=== PATIENT | female | born 1980 | race Caucasian/White ===

== ENCOUNTER 2021-04-13 14:36 | Emergency (ER) | payer OTHER ==
[~2021-04-13] VITALS: Ht 170.2 cm; Wt 88.5 kg
[2021-04-13] MEDS ORDERED: CYMBALTA30 MG PO (14:47)
[2021-04-13] MEDS ORDERED: ESTRACE1 MG PO (14:49)
[2021-04-13] MEDS ORDERED: MOBIC7.5 MG PO (14:49)
[2021-04-13] MEDS ORDERED: WELLBUTRIN SR100 MG PO (14:49)
[2021-04-13 14:54] LABS: ABSOLUTE BASOPHILS 0.1 thou/uL (0.0-0.2); ABSOLUTE EOSINOPHILS 0.1 thou/uL (0.0-0.7); ABSOLUTE LYMPHOCYTES 2.1 thou/uL (0.8-5.3); ABSOLUTE MONOCYTES 0.3 thou/uL (0.0-1.2); ABSOLUTE NEUTROPHILS 4.1 thou/uL (1.6-8.1); BASOPHILS 0.8 %; EOSINOPHILS 0.9 %; HEMATOCRIT 39.3 % (37.0-47.0); HEMOGLOBIN 13.4 gm/dL (12.0-15.0); MCH 32.1 pg (26.0-34.0); MCHC 34.2 g/dL (28.0-37.0); MCV 93.9 fL (80.0-100.0); MONOCYTES 4.6 %; MPV 9.7 fl. (7.2-11.1); NUCLEATED RBCS 0 /100WBC; PLATELET COUNT* 215 thou/uL (150-400); POLYS 61.7 %; RBC 4.19 mil/uL (4.20-5.00); RDW-CV 13.2 % (10.5-14.5); WBC 6.7 thou/uL (4.0-11.0)
[2021-04-13 15:10] LABS: CREATININE 0.7 mg/dL (0.6-1.3); POTASSIUM 3.7 mmol/L (3.5-5.1)
[2021-04-13 15:14] LABS: ALBUMIN 3.9 g/dL (3.4-5.0); TOTAL BILIRUBIN 0.4 mg/dL (<0.1-1.0); TOTAL PROTEIN 7.2 g/dL (6.4-8.2)
[2021-04-13 15:18] LABS: URINE BILIRUBIN NEGATIVE (Negative); URINE BLOOD TRACE (Negative); URINE CLARITY CLEAR; URINE COLOR YELLOW; URINE GLUCOSE-RANDOM NEGATIVE (Negative); URINE KETONES NEGATIVE (Negative); URINE LEUKOCYTES NEGATIVE (Negative); URINE NITRITE NEGATIVE (Negative); URINE PROTEIN NEGATIVE (Negative); URINE UROBILINOGEN 0.2 E.U./dl (0.2-1.0)
[2021-04-13] MEDS ORDERED: NORCO5 PO ×2 (17:37→17:41)
[2021-04-13] MEDS ORDERED: TORADOL 10 MG T10 MG PO (17:37)
[2021-04-13] MEDS ORDERED: ONDANSETRON ODT4 MG PO (17:37)
[2021-04-13 17:55] VITALS: BP 111/79
--- NOTE | 2021-04-14 12:54 | EKG ---
[place] [address] ELECTROCARDIOGRAM REPORT Name: ISH SAUNDERS Room: [facility]#: [id number] Admission: 04/13/21 Attend Phys: Discharge: 04/13/21 Date of : 76 Date of Service: 04/13/21 1707 Report #: [id number] THIS REPORT FOR: //name// [facility] ED Test Date: 2021-04-13 Test Time: 17:07:08 Pat Name: ISH SAUNDERS Department: Room: Gender: F Vp Patient: : 1980 Requested By: Panda Miramontes Order Number: [id number] MD: Mohinder Aponte Measurements Intervals [place] Rate: 80 P: 45 CT: 156 QRS: 31 QRSD: 85 T: 38 QT: 381 QTc: 440 Interpretive Statements Sinus rhythm Borderline low voltage, extremity leads No previous ECG available for comparison Electronically Signed On 04-14-2021 12:54:06 CDT by Mohinder Aponte [email or web address] <ELECTRONICALLY SIGNED> By: Mohinder Aponte MD, [facility] 04/14/21 1254 170 06 Mohinder Aponte MD, [facility] /EPI
== END 2021-04-13 17:56 | disposition home or self-care (01) ==
LOC: M.ERS 14:36
PROVIDERS: Emergency Medicine
DX: R10.11 Right upper quadrant pain (principal); R19.7 Diarrhea, unspecified; G35 Multiple sclerosis; F17.210 Nicotine dependence, cigarettes, uncomplicated; Z90.710 Acquired absence of both cervix and uterus

== ENCOUNTER → 2021-04-19 | Day surgery (SDC) | payer OTHER ==
[~2021-04-19] MED LIST: CYMBALTA30 MG PO; ESTRACE1 MG PO; MOBIC7.5 MG PO; NORCO5 PO; ONDANSETRON ODT4 MG PO; TORADOL 10 MG T10 MG PO; WELLBUTRIN SR100 MG PO
--- NOTE | ~2021-04-19 | OP ---
[address] [address] OPERATIVE REPORT Name: ISH SAUNDERS Room: [facility]#: [id number] Admission: 04/19/21 Attend Phys: Kyrie Raymond MD Discharge: Date of : 76 Report #: [id number] THIS REPORT FOR: cc: HERON MOYA DO BLYTHE, TIFFANNY, DO Joseph, Sigi P. MD ~ DOC #: [id number] cc: DO Kyrie Carbajal MD DATE OF SURGERY: 04/19/2021 PREOPERATIVE DIAGNOSIS: Acute on chronic cholecystitis. POSTOPERATIVE DIAGNOSIS: Chronic cholecystitis/biliary dyskinesia. OPERATIVE PROCEDURE DONE: Laparoscopic cholecystectomy. OPERATING SURGEON: Kyrie Raymond MD INDICATIONS FOR THE PROCEDURE: The patient is a 40-year-old female who presented with complaints of recurrent episodes of right upper quadrant pain that she has been having for the last few months. The patient was seen in the emergency room and a CT scan and ultrasound scan that was done was normal. The patient presented to the clinic 2 days ago with recurrence of severe pain, was very tender in the right upper quadrant with positive Mendez sign. The patient was advised laparoscopic cholecystectomy. The patient showed understanding and agreed to proceed. PROCEDURE IN DETAIL: After explaining to the patient in detail and informed consent was obtained, the patient was identified in the preoperative holding area. The patient was transferred to the operating room and was placed in supine position. Sequential compression devices were placed for DVT prophylaxis. Preoperative antibiotics were given. After induction of anesthesia, the abdomen was prepped and draped in a sterile fashion. Through a right upper quadrant 1 cm incision and using Optiview technique, peritoneal cavity was entered and pneumoperitoneum was created. Thereafter, under direct vision, another 5 mm trocar was placed through a supraumbilical incision and another 5 mm trocar was placed in the epigastrium and one in the right lateral subcostal region. On initial inspection, the gallbladder appeared normal. The gallbladder was retracted and the peritoneal reflection around the neck of the gallbladder was gently dissected off. Cystic duct was identified and was isolated from the surrounding structures. Cystic artery was identified and isolated from the surrounding structures. Cystic duct was then double clipped proximally and single clip applied distally and was then divided. Cystic artery also was then divided in a similar fashion. [place] [address] OPERATIVE REPORT Name: ISH SAUNDERS Room: [facility]#: [id number] Admission: 04/19/21 Attend Phys: Kyrie Raymond MD Discharge: Date of : 76 Report #: [id number] dissected off the liver bed using hook electrocautery. Absolute hemostasis was achieved. Thorough saline irrigation was given. Gallbladder was then retrieved using an EndoCatch through the lateral most incision. The incisions were then closed with 4-0 Monocryl. Dermabond was applied. The patient was stable at the end of the procedure. The lateral incision was closed with 0 Vicryl for the fascia. Skin was closed with 4-0 Monocryl. The patient was awoken from anesthesia and was transferred to the recovery room in stable condition. Estimated blood loss was approximately 10 mL. CONDITION OF THE PATIENT: Stable. FLUIDS GIVEN: Per anesthesia notes. SPECIMEN SENT: Gallbladder. COMPLICATIONS: None. ANESTHESIA: General anesthesia. Kyrie Raymond MD SPJ/JAZZMINE By: [id number] Raymond MD /nt
--- NOTE | 2021-04-23 16:06 | PATH ---
[address] [address] PATHOLOGY RPT PROCEDURE Name: ISH SAUNDERS Room: [facility]#: [id number] Admission: 04/19/21 Date of : 76 Discharge: Report #: [id number] Path Case #: [id number] [facility] Accession Number: [id number] . 01 Material submitted: . gallbladder - GALLBLADDER . 01 Clinical history: . LAPAROSCOPIC CHOLECYSTECTOMY CHOLECYSTITIS . 02 Diagnosis: Gallbladder: - Chronic cholecystitis. (GERSON:meliza; 04/23/2021) [facility] 04/23/2021 1326 Local . 02 Electronically signed: . Shaan Amato MD, Pathologist NPI- [id number] . 01 Gross description: . Fixative: Formalin Labeled: Gallbladder and contents Specimen received: Intact Dimensions: 8.7 x 3.6 x 2.9 cm Serosa: Smooth, yellow-green and glistening with a roughened hepatic bed Lymph node: No Mucosa: Velvety, brown-green Average wall thickness: 0.2 cm Calculi: No Abnormalities: None A1- Relief Cook body, fundus, and the cystic duct margin(inked black). ([facility]; 04/21/2021) G[facility] 04/23/2021 1326 Local . 02 Pathologist provided ICD-10: K81.1 . 02 CPT . 146354 Specimen Comment: A courtesy copy of this report has been sent to [phone], [phone] Specimen Comment: 1986 Specimen Comment: Report sent to / DR MOYA Specimen Comment: A duplicate report has been generated due to demographic updates. Performed at: [address] [address] PATHOLOGY RPT PROCEDURE Name: ISH SAUNDERS Room: [facility]#: [id number] Admission: 04/19/21 Date of : 76 Discharge: Report #: [id number] Path Case #: [id number] [facility] [id number] MD Ivan Lama MD Phone: [phone] Performed at: [address] [id number] MD Shaan Amato MD Phone: [phone]
== END | disposition home or self-care (01) ==
LOC: M.SUR 06:10
PROVIDERS: ATTEND Surgery
DX: K81.1 Chronic cholecystitis (principal); Z79.899 Other long term (current) drug therapy; Z98.890 Other specified postprocedural states